=== PATIENT | female | born 1995 | race Caucasian/White ===

== ENCOUNTER 2016-02-22 16:31 | Inpatient (IN) | payer MEDICAID, OTHER ==
[~2016-02-22] VITALS: Ht 160 cm; Wt 78.9 kg
[~2016-02-22 16:31] MED LIST: DIPHTH/TETANUS/ACEL PERTUSSIS (BOOSTER) 0.5 ML VIAL/PFS IM ONE; FERR1TAB36 PO; MEASLES, MUMPS, RUBELLA VACCINE 0.5 ML VIAL SQ ONE; PREN1CAP PO
[2016-02-22] MEDS ORDERED: LACTATED RINGER'S 1000 ML INJ 1,000 ML IV PRN (17:20)
--- NOTE | 2016-02-22 17:20 | HHI.HP ---
History & Physical H&P HPI Travel History International Travel<30 Days: No Contact w/Intl Traveler<30Days: No Known Affected Area: No History of Present Illness HPI This patient is a 20-year-old 2 para 1001 EDC is March 10, 2016 presently at 37 weeks and 4 days she presents with chief complaint of spontaneous rupture membranes at 3:30 PM fluid was clear soft and onset of contractions irregular care with care for women courses been unremarkable she states that her group B strep is negative History (Limited) History Past Medical History Narrative Medical No known drug allergies history of gastric reflux Obstetric History Obstetric History 2 para 1 First baby born March 2014 male weight 7 lbs. 2 oz. vaginal delivery Past Surgical History Surgical History: No Previous Surgery Family History Family History: Negative Social History Alcohol Use: No Tobacco Use: No Substance Abuse: No Allergies-Medications Allergies-Medications (Allergen,Severity, Reaction): Coded Allergies: No Known Allergies (Unverified , 02/22/16) Home Meds Reported Medications Vit W/ Fe Polysacch C (Vitafol Ultra 29-0.6-0.4-200 mg)1 Cap Cap Po 01/05/16 Discontinued Scripts Ferrous Sulfate (Iron)325 Mg [id number] Mg PO DAILY #30 TAB Ref 0 Take Prov:Piter Fields MD R2 12/23/15 ROS Review of Systems Gastrointestinal: Abdominal Pain (irregular contractions) Genitourinary: Other (leaking fluid) Physical Exam Physical Exam Narrative GENERAL: Well-nourished, well-developed patient. Alert oriented 3 and cooperative in moderate distress secondary to uterine contractions SKIN: Warm and dry. HEAD: Normocephalic and atraumatic. EYES: No scleral icterus. No injection or drainage. On junk tidal are pink ENT: No nasal drainage noted. Mucous membranes pink. Airway patent. NECK: Supple, trachea midline. No JVD. CARDIOVASCULAR: Regular rate and rhythm without murmurs, gallops, or rubs. RESPIRATORY: Breath sounds equal bilaterally. No accessory muscle use. ABDOMEN/GI: Gravid consistent with 37 weeks palpable contractions every 6-7 minutes Gravid to [-] weeks size 37 Fundal Height: [-] GENITOURINARY: External Genitalia: intact and normal in appearance BUS glands: [-] Cervix: [-] Posterior soft Dilatation: [-] 3 cm Effacement: [-] 50% effaced Station: [-] -2 station Presentation: [-] Vertex Membranes: ruptured] Uterine Contractions: [-] 6-7 minutes FHT's: Category: [-] 1 Baseline: [-] 140 Reactive: [-] Positive with accelerations up to 160 Variability: [-] Moderate Decels: [-] 0 EXTREMITIES: No cyanosis or edema. 2+ reflexes NEUROLOGICAL: Awake and alert. Motor and sensory grossly within normal limits. Five out of 5 muscle strength in all muscle groups. Normal speech. Data Data Data Vital Signs Reviewed: Yes (blood pressures 124/73 temperature is 98.3 pulse is 111) Orders Ob (2e) Additional Admit Info (02/22/16 16:59) MDM MDM Medical Record Reviewed: Yes Interpretation(s) 20-year-old 37 weeks and 4 days Premature rupture membranes Onset of labor GBS negative Plan Admit IV fluid hydration CBC type and screen GBS PCR She requests an epidural Pitocin augmentation of labor Anticipate vaginal delivery Diagnosis Diagnosis: Primary Impression: Premature labor with rupture of membranes in third trimester Aruna Arevalo MD Feb 22, 2016 17:19 Aruna Arevalo MD Feb 22, 2016 17:20
[2016-02-22] MEDS ORDERED: LIDOCAINE HCL 1% 50 ML VIAL I-DERMAL PRN (17:30)
[2016-02-22] MEDS ORDERED: CITRIC ACID-SODIUM CITRATE LIQ 30 ML UDC PO SCH (17:30)
[2016-02-22] MEDS ORDERED: MINERAL OIL 10 ML VIAL TOPICAL PRN (17:30)
[2016-02-22] MEDS ORDERED: OXYTOCIN 30 UNITS-500ML PREMIX 500 ML IV ONE (17:30)
[2016-02-22] MEDS ORDERED: SODIUM CHLORID 0.9% 500 ML INJ 500 ML IV PRN (17:30)
[2016-02-22] MEDS ORDERED: OXYTOCIN 30 UNITS-500ML PREMIX 500 ML IV SCH (17:30)
[2016-02-22] MEDS ORDERED: LIDOCAINE HCL 1% 50 ML VIAL INFIL PRN (17:30)
[2016-02-22] MEDS ORDERED: SODIUM CHLOR 0.9% 1000 ML INJ 1,000 ML IV PRN (17:40)
[2016-02-22 17:53] LABS: AUTOMATED NEUTROPHIL # 11.9 TH/MM3 (1.8-7.7); BASOPHIL % 0.3 % (0.0-2.0); EOSINOPHIL # 0.1 TH/MM3 (0-0.4); EOSINOPHIL % 0.7 % (0.0-4.0); HEMO FLAGS DIFF FINAL; LYMPH % 16.9 % (9.0-44.0); LYMPHOCYTE # 2.6 TH/MM3 (1.0-4.8); MEAN CELL VOLUME 90.2 FL (80.0-100.0); MEAN CORPUSCULAR HEMOGLOBIN 31.8 PG (27.0-34.0); MEAN CORPUSCULAR HGB CONC 35.3 % (32.0-36.0); MONO % 5.9 % (0.0-8.0); NEUT % 76.2 % (16.0-70.0); PLATELET COUNT 275 TH/MM3 (150-450); RED CELL DISTRIBUTION WIDTH 13.5 % (11.6-17.2); WHITE BLOOD COUNT 15.6 TH/MM3 (4.0-11.0)
[2016-02-22 17:58] LABS: BLOOD, URINE NEG (NEG); COMMENT (UR) CULT NOT INDICATED; CULTURE IF INDICATED CULT NOT INDICATED; GLUCOSE,URINE NEG (NEG); KETONE, URINE NEG (NEG); MUCUS URINE FEW /lpf (OCC); NITRITE,URINE NEG (NEG); PH, URINE 7.5 (5.0-8.5); SQUAMOUS EPITHELIAL CELL URINE 1 /hpf (0-5); URINE COLOR YELLOW (YELLW/STRAW)
[2016-02-22 18:05] LABS: AMPHETAMINE, URINE NEG (NEG); BARBITURATES, URINE NEG (NEG); COCAINE, URINE NEG (NEG)
[2016-02-22] MEDS: LACTATED RINGER'S 1000 ML INJ 1,000 ML IV SCH (18:33)
[2016-02-22] MEDS ORDERED: fentaNYL 2MCG-BUPIV 0.125% INJ 100 ML ONE (19:24)
--- NOTE | 2016-02-22 21:50 | PD.LABORPN ---
Subjective Subjective Patient comfortable with her epidural Objective Vital Signs Blood pressures 116/70 Vital Signs Date Time Temp Pulse Resp B/P Pulse Ox O2 Delivery O2 Flow Rate FiO2 02/22/16 19:24 18 Objective Pelvic Exam: Cervix: [-] Midline Dilatation: [-] 6 cm Effacement: [-] 100% effaced Station: [-] -1 to -2 station Presentation: [-] Vertex Membranes:ruptured] Uterine Contractions: [-] Every 2-3 minutes FHT's: Category: [-] Was a category 2 however patient hydrated and sat up variable to early is resolved now category 1 Baseline: [-] 130 Reactive: [-] Reactive Variability: [-] Moderate Decels: [-] Early to variables resolved Assessment/Plan Assessment and Plan IUPC placed scalp electrode placed Patient sat straight Variables returned Will do positional change O2 Amnioinfusion Reevaluation os monitor Aruna Arevalo MD Feb 22, 2016 21:50
--- NOTE | 2016-02-22 22:42 | PD.OB.DELI ---
Delivery Date: Feb 22, 2016 Anesthesia: Epidural Episiotomy: None Vaginal Delivery: Normal Presentation: Occiput anterior Nuchal Cord: x1, Other (cord loose) : Male One Minute : 9 Five Minute : 9 Weight: 3105 Infant Care: Suctioned Placenta: Spontaneous delivery, Intact, 3 vessel cord Laceration: No lacerations Aruna Arevalo MD Feb 22, 2016 22:42
[2016-02-22] MEDS ORDERED: WITCH HAZEL 50%/GLYCERIN 12.5% 40 PAD JAR TOPICAL PRN (22:45)
[2016-02-22] MEDS ORDERED: ACETAMINOPHEN 325 MG TAB PO PRN (22:45)
[2016-02-22] MEDS ORDERED: SODIUM CHLORIDE 0.9% FLUSH 5 ML FLUSH IV PRN (22:45)
[2016-02-22] MEDS ORDERED: ZOLPIDEM TARTRATE 5 MG TAB PO PRN (22:45)
[2016-02-22] MEDS ORDERED: BENZOCAINE 20% TOPICAL SPRAY 60 ML CAN TOPICAL PRN (22:45)
[2016-02-22] MEDS ORDERED: ONDANSETRON ODT 4 MG TAB PO PRN (22:45)
[2016-02-22] MEDS ORDERED: ALUMINUM/MAGNESIUM/SIMETH 30 ML CUP PO PRN (22:45)
[2016-02-22] MEDS: IBUPROFEN 600 MG TAB PO PRN (23:47)
[2016-02-23] MEDS: LACTATED RINGER'S 1000 ML INJ 1,000 ML IV SCH (01:20)
[2016-02-23] MEDS: DOCUSATE SODIUM 50 MG/SENNA 8.6 MG TAB PO PRN ×2 (03:43→14:34)
[2016-02-23] MEDS: oxyCODONE/ACETAMINOPHEN 5 MG/325 MG TAB PO PRN ×3 (03:44→15:46)
[2016-02-23] MEDS: IBUPROFEN 600 MG TAB PO PRN ×3 (07:31→20:25)
[2016-02-23] MEDS ORDERED: INFLUENZA VIRUS VACCINE (QUADRIVALENT) 0.5 ML SYR IM ONE (09:00)
[2016-02-23] MEDS ORDERED: SODIUM CHLORIDE 0.9% FLUSH 5 ML FLUSH IV SCH (09:00)
--- NOTE | 2016-02-23 09:09 | HHI.OB ---
Subjective Post Day: 1 Remarks AFVSS - patient doing well. No concerns or complaints. Ambulating and urinating without difficulty. Vaginal bleeding is decreased. Breast feeding. Objective Vitals/I&O Vital Signs Date Time Temp Pulse Resp B/P Pulse Ox O2 Delivery O2 Flow Rate FiO2 02/22/16 19:24 18 Objective Remarks GENERAL: Well-nourished, well-developed patient. CARDIOVASCULAR: Regular rate and rhythm without murmurs, gallops, or rubs. RESPIRATORY: Breath sounds equal bilaterally. No accessory muscle use. ABDOMEN/GI: Abdomen soft, non-tender. Fundus: Firm, non-tender at umbilicus. GENITOURINARY: Light to moderate bleeding. EXTREMITIES: No cyanosis or edema, non-tender, without signs of DVT. Medications and IVs Current Medications Medications (Trade) Dose Ordered Sig/Leander Route Start Time Stop Time Status Last Admin Lactated Ringer's 1,000 ml @ 125 mls/hr Q8H IV 02/22/16 17:20 02/22/16 18:33 Lactated Ringer's 1,000 ml @ 3,000 mls/hr Q20M PRN IV 02/22/16 17:20 Sodium Chloride 500 ml @ 1,000 mls/hr ONCE PRN IV 02/22/16 17:30 02/23/16 17:29 (NS 1000 ml Inj) 1,000 ml @ 100 mls/hr Q10H PRN IV 02/22/16 17:40 02/22/16 22:03 (fentaNYL INJ) 50 mcg Q1H PRN IV PUSH 02/22/16 17:30 (fentaNYL INJ) 100 mcg Q1H PRN IV PUSH 02/22/16 17:30 Mineral Oil 10 ml 10 ml UNSCH PRN TOPICAL 02/22/16 17:30 (Pitocin 30 Units-NS 500 ml Premix) 500 ml @ 0 mls/hr TITRATE IV 02/22/16 17:30 02/22/16 18:35 (NS Flush) 2 ml BID IV 02/23/16 09:00 (NS Flush) 2 ml UNSCH PRN IV 02/22/16 22:45 (Tylenol) 650 mg Q4H PRN PO 02/22/16 22:45 (Motrin) 600 mg Q6H PRN PO 02/22/16 22:45 02/23/16 07:31 (Americaine 20% Top Spr) 1 spray Q4H PRN TOPICAL 02/22/16 22:45 02/23/16 03:44 (Tucks Pads) 1 applic QID PRN TOPICAL 02/22/16 22:45 02/23/16 03:44 (Anali-Colace) 2 tab Q12H PRN PO 02/22/16 22:45 02/23/16 03:43 (Ambien) 5 mg HS PRN PO 02/22/16 22:45 (Mag-Al Plus Susp Liq) 15 ml Q8H PRN PO 02/22/16 22:45 (Zofran Odt) 4 mg Q6H PRN PO 02/22/16 22:45 (Percocet 5-325 Mg) 2 tab Q6H PRN PO 02/23/16 01:45 02/23/16 03:44 Assessment/Plan Problem List: (1) (normal spontaneous vaginal delivery) (2) DMDD (disruptive mood dysregulation disorder) Assessment and Plan 20 yo female s/p PPD 1. - AFVSS - Continue routine care - Motrin and Percocet PRN pain - Encourage OOB - Pelvic rest x 6 wks - Contraception: wants Nexplanon as an outpatient. - Anticipate D/C tomorrow 02/23/2015. lilia Valdivia-Benjy Lindquist MD R2 Feb 23, 2016 09:09
[2016-02-23 19:44] VITALS: BP 138/69; PULSE 97; RESP 18; TEMP 98
[2016-02-24] MEDS: oxyCODONE/ACETAMINOPHEN 5 MG/325 MG TAB PO PRN ×3 (00:50→09:14)
[2016-02-24] MEDS: LACTATED RINGER'S 1000 ML INJ 1,000 ML IV SCH (01:20)
[2016-02-24] MEDS: IBUPROFEN 600 MG TAB PO PRN ×2 (05:23→11:20)
[2016-02-24 06:19] VITALS: RESP 16
--- NOTE | 2016-02-24 08:51 | HHI.OB ---
Subjective Post Day: 2 Remarks Doing well no problems, bleeding decreased , cristiano diet , exam uterus at umb NT likely D/C home today Objective Vitals/I&O Vital Signs Date Time Temp Pulse Resp B/P Pulse Ox O2 Delivery O2 Flow Rate FiO2 02/24/16 06:19 16 02/24/16 06:19 16 02/23/16 19:44 98.0 97 18 138/69 Objective Remarks GENERAL: Well-nourished, well-developed patient. CARDIOVASCULAR: Regular rate and rhythm without murmurs, gallops, or rubs. RESPIRATORY: Breath sounds equal bilaterally. No accessory muscle use. ABDOMEN/GI: Abdomen soft, non-tender. Fundus: Firm, non-tender at umbilicus. GENITOURINARY: Light to moderate bleeding. EXTREMITIES: No cyanosis or edema, non-tender, without signs of DVT. Medications and IVs Current Medications Medications (Trade) Dose Ordered Sig/Leander Route Start Time Stop Time Status Last Admin Lactated Ringer's 1,000 ml @ 125 mls/hr Q8H IV 02/22/16 17:20 02/22/16 18:33 Lactated Ringer's 1,000 ml @ 3,000 mls/hr Q20M PRN IV 02/22/16 17:20 (NS 1000 ml Inj) 1,000 ml @ 100 mls/hr Q10H PRN IV 02/22/16 17:40 02/22/16 22:03 (fentaNYL INJ) 50 mcg Q1H PRN IV PUSH 02/22/16 17:30 (fentaNYL INJ) 100 mcg Q1H PRN IV PUSH 02/22/16 17:30 Mineral Oil 10 ml 10 ml UNSCH PRN TOPICAL 02/22/16 17:30 (Pitocin 30 Units-NS 500 ml Premix) 500 ml @ 0 mls/hr TITRATE IV 02/22/16 17:30 02/22/16 18:35 (NS Flush) 2 ml BID IV 02/23/16 09:00 (NS Flush) 2 ml UNSCH PRN IV 02/22/16 22:45 (Tylenol) 650 mg Q4H PRN PO 02/22/16 22:45 (Motrin) 600 mg Q6H PRN PO 02/22/16 22:45 02/24/16 05:23 (Americaine 20% Top Spr) 1 spray Q4H PRN TOPICAL 02/22/16 22:45 02/23/16 03:44 (Tucks Pads) 1 applic QID PRN TOPICAL 02/22/16 22:45 02/23/16 03:44 (Anali-Colace) 2 tab Q12H PRN PO 02/22/16 22:45 02/23/16 14:34 (Ambien) 5 mg HS PRN PO 02/22/16 22:45 (Mag-Al Plus Susp Liq) 15 ml Q8H PRN PO 02/22/16 22:45 (Zofran Odt) 4 mg Q6H PRN PO 02/22/16 22:45 (Percocet 5-325 Mg) 2 tab Q6H PRN PO 02/23/16 01:45 02/24/16 05:23 Assessment/Plan Problem List: (1) (normal spontaneous vaginal delivery) (2) DMDD (disruptive mood dysregulation disorder) Assessment and Plan 20 yo female s/p PPD 1. - AFVSS - Continue routine care - Motrin and Percocet PRN pain - Encourage OOB - Pelvic rest x 6 wks - Contraception: wants Nexplanon as an outpatient. - Anticipate D/C tomorrow 02/23/2015. Jason Marcano Dr., II, MD Feb 24, 2016 08:51
[2016-02-24] MEDS ORDERED: OXYC1TAB63 PO (09:32)
[2016-02-24] MEDS ORDERED: IBUP-232 PO (09:32)
[2016-02-24] MEDS ORDERED: SENN1TAB PO (09:32)
--- NOTE | 2016-02-24 09:33 | HHI.DCPOC ---
Discharge Care Plan Diagnosis: (1) Polyhydramnios (2) (spontaneous vaginal delivery) Report Symptoms to Your Doctor -Temperate above 100.5 degrees -Redness, of incision or excessive or foul smelling drainage -Unusual pain or calf pain -Increased vaginal bleeding -Painful or difficulty urinating -Feelings of extreme sadness or anxiety after 2 weeks Goals to Promote Your Health * To prevent worsening of your condition and complications * To maintain your health at the optimal level Directions to Meet Your Goals Take your medications as prescribed Follow your dietary instruction Follow activity as directed Ensure plenty of rest for recovery Drink fluids for hydration Keep your appointments as scheduled Take your immunizations and boosters as scheduled If your symptoms worsen call your PCP, if no PCP go to Urgent Care Center or Emergency Room Smoking is Dangerous to Your Health. Avoid second hand smoke Call the 24-hour crisis hotline for domestic abuse at Benjy Shabazz MD R2 Feb 24, 2016 09:33
--- NOTE | 2016-02-24 11:34 | HHI.OB ---
Subjective Post Day: 2 Remarks Patient is doing well, she still has 9/10 pain with feeds, and 6/10 pain currently. She is using a heating pad. She wants a Nexplanon when she leaves the hospital. She has been urinating, ambulating, and passing gas. Objective Vitals/I&O Vital Signs Date Time Temp Pulse Resp B/P Pulse Ox O2 Delivery O2 Flow Rate FiO2 02/24/16 06:19 16 02/24/16 06:19 16 02/23/16 19:44 98.0 97 18 138/69 Objective Remarks GENERAL: Well-nourished, well-developed patient. CARDIOVASCULAR: Regular rate and rhythm without murmurs, gallops, or rubs. RESPIRATORY: Breath sounds equal bilaterally. No accessory muscle use. ABDOMEN/GI: Abdomen soft, non-tender. Fundus: Firm, non-tender at umbilicus. GENITOURINARY: Light to moderate bleeding. EXTREMITIES: No cyanosis or edema, non-tender, without signs of DVT. Medications and IVs Current Medications Medications (Trade) Dose Ordered Sig/Leander Route Start Time Stop Time Status Last Admin Lactated Ringer's 1,000 ml @ 125 mls/hr Q8H IV 02/22/16 17:20 02/22/16 18:33 Lactated Ringer's 1,000 ml @ 3,000 mls/hr Q20M PRN IV 02/22/16 17:20 (NS 1000 ml Inj) 1,000 ml @ 100 mls/hr Q10H PRN IV 02/22/16 17:40 02/22/16 22:03 (fentaNYL INJ) 50 mcg Q1H PRN IV PUSH 02/22/16 17:30 (fentaNYL INJ) 100 mcg Q1H PRN IV PUSH 02/22/16 17:30 Mineral Oil 10 ml 10 ml UNSCH PRN TOPICAL 02/22/16 17:30 (Pitocin 30 Units-NS 500 ml Premix) 500 ml @ 0 mls/hr TITRATE IV 02/22/16 17:30 02/22/16 18:35 (NS Flush) 2 ml BID IV 02/23/16 09:00 (NS Flush) 2 ml UNSCH PRN IV 02/22/16 22:45 (Tylenol) 650 mg Q4H PRN PO 02/22/16 22:45 (Motrin) 600 mg Q6H PRN PO 02/22/16 22:45 02/24/16 11:20 (Americaine 20% Top Spr) 1 spray Q4H PRN TOPICAL 02/22/16 22:45 02/23/16 03:44 (Tucks Pads) 1 applic QID PRN TOPICAL 02/22/16 22:45 02/23/16 03:44 (Anali-Colace) 2 tab Q12H PRN PO 02/22/16 22:45 02/23/16 14:34 (Ambien) 5 mg HS PRN PO 02/22/16 22:45 (Mag-Al Plus Susp Liq) 15 ml Q8H PRN PO 02/22/16 22:45 (Zofran Odt) 4 mg Q6H PRN PO 02/22/16 22:45 (Percocet 5-325 Mg) 2 tab Q6H PRN PO 02/23/16 01:45 02/24/16 09:14 Assessment/Plan Problem List: (1) (normal spontaneous vaginal delivery) (2) DMDD (disruptive mood dysregulation disorder) Assessment and Plan 20 yo female s/p PPD 2 - AFVSS - Continue routine care - Motrin and Percocet PRN pain - Encourage OOB - Pelvic rest x 6 wks - Contraception: wants Nexplanon as an outpatient. - Anticipate D/C today 02/24/16. lilia Valdivia-Benjy Lindquist MD R2 Feb 24, 2016 11:34
[2016-02-29 08:19] LABS: BATH SALTS (MDPV) UR NEG (NEG); ECSTASY (MDMA) UR NEG (NEG); HEROIN (6-ACETYLMORPHINE) UR NEG (NEG); K2 SPICE UR NEG (NEG); OBMETHADONE UR NEG (NEG); OXYCODONE (PERCODAN) NEG (NEG); PHENCYCLIDINE URINE NEG (NEG)
[2016-03-09] MEDS ORDERED: SERT25TA83 PO (09:55)
[2016-03-09] MEDS ORDERED: PREN1CAP PO (09:57)
[2016-04-05] MEDS ORDERED: SERT25TA83 PO (14:09)
== END 2016-02-24 14:23 | disposition home or self-care (01) | DRG 775 ==
LOC: HOBED 16:31 → H2EB 17:00 → H1EA 02-23 00:57
PROVIDERS: ADMIT Obstetrics & Gynecology; ATTEND Obstetrics & Gynecology
PROC: 10E0XZZ Delivery of Products of Conception, External Approach (ICD-10-PCS; principal; 2016-02-22)
PROC: 00HU33Z Insertion of Infusion Device into Spinal Canal, Percutaneous Approach (ICD-10-PCS; 2016-02-22)
PROC: 3E0R3CZ (ICD-10-PCS; 2016-02-22)
DX: O42.02 Full-term premature rupture of membranes, onset of labor within 24 hours of rupture (principal); O99.344 Other mental disorders complicating childbirth; F34.81 Disruptive mood dysregulation disorder; O69.81X0 Labor and delivery complicated by cord around neck, without compression, not applicable or unspecified; Z23 Encounter for immunization; Z3A.37 37 weeks gestation of pregnancy; Z37.0 Single live birth
CPT/HCPCS: 80307; 80352; 80354; 80356; 80358; 80359; 80371; 81001; 83992; 84112; 85025; 90686; 90715; 99285; G0480; G0481; J2590; J7030; J7120; Q2038